=== PATIENT | male | born 1965 | race Caucasian/White ===

== ENCOUNTER 2025-05-18 10:34 | Emergency (ER) | payer BC, OTHER ==
[2025-05-18] MEDS ORDERED: Bacitracin 1 PK ONE (10:53)
[2025-05-18] MEDS ORDERED: Lidocaine 1% (PF) 30 ML VIAL ONE (10:53)
[2025-05-18] MEDS ORDERED: Amoxicillin/Potassium Clav 875 MG TAB ONE (11:46)
== END 2025-05-18 11:50 | disposition home or self-care (01) ==
LOC: NAV ERS 10:34
DX: S60.457A Superficial foreign body of left little finger, initial encounter (principal); I10 Essential (primary) hypertension; E78.00 Pure hypercholesterolemia, unspecified; W45.8XXA Other foreign body or object entering through skin, initial encounter
CPT/HCPCS: 99283